=== PATIENT | female | born 2000 | race Caucasian/White ===

== ENCOUNTER 2023-09-23 12:09 | Emergency (ER) | payer MEDICAID, SELFPAY ==
[2023-09-23 12:11] VITALS: BP 110/82; PULSE 61; RESP 18; TEMP 36.1; O2SAT 97; BMI 25.2
[2023-09-23 12:14] VITALS: BP 110/82; PULSE 62; RESP 16; TEMP 36.3; O2SAT 98
--- NOTE | 2023-09-23 12:26 | CT_ITS ---
EXAM: CT ABDOMEN AND PELVIS WITH INTRAVENOUS CONTRAST CLINICAL INDICATION: abdominal pain TECHNIQUE: Helically acquired images were obtained of the abdomen and pelvis with intravenous contrast. This CT exam was performed using one or more of the following dose reduction techniques: automated exposure control, adjustment of the mA and/or kV according to patient size, and/or use of iterative reconstruction technique. CONTRAST: IV 100mL [id number] COMPARISON: No relevant prior studies available. FINDINGS: LOWER THORAX: No significant abnormality. Lung bases are clear. No cardiomegaly. No significant pericardial effusion. ABDOMEN: LIVER: No significant abnormality. Homogeneous. No focal mass. GALLBLADDER AND BILE DUCTS: No significant abnormality. No calcified gallstones. No gallbladder distention or wall edema. No intra- or extrahepatic biliary ductal dilation. PANCREAS: No significant abnormality. No focal cystic or solid mass. SPLEEN: No significant abnormality. Normal size without focal cystic or solid mass. ADRENALS: No significant abnormality. No nodules. KIDNEYS AND URETERS: No significant abnormality. Normal renal size and position. No hydronephrosis. STOMACH AND BOWEL: No significant abnormality. No stomach or bowel distention. No focal inflammatory change. PELVIS: APPENDIX: Normal appendix in the right lower quadrant. BLADDER: No significant abnormality. REPRODUCTIVE: Normal as visualized. No mass. ABDOMEN and PELVIS: INTRAPERITONEAL SPACE: No significant abnormality. No ascites or other fluid collection. No free air. BONES/JOINTS: No significant abnormality. No suspicious lytic or blastic abnormality. SOFT TISSUES: No significant abnormality. No discrete abdominal or pelvic wall hernia. VASCULATURE: No significant abnormality. Abdominal aorta is non-dilated. LYMPH NODES: No significant abnormality. No enlarged lymph nodes. CT/Abdomen/Pelvis W IV Cont ONLY IMPRESSION: No acute findings in the abdomen or pelvis. Electronically Signed: Marcelino Jefferson DO at 14:02 EDT ,
--- NOTE | 2023-09-23 12:30 | EX.ED.DYSGE1 ---
HPI <SHARON Pizano - Last Filed: 09/23/23 14:11> History of Present Illness Chief Complaint: Abd Pain Narrative Narrative: Patient is a 23-year-old female with history of anxiety, depression, migraine headaches who presents to the emergency department for ongoing abdominal pain. Patient states has been having abdominal pain, since September 15, 2023. She did get seen at [facility], they did a pelvic exam, she was placed on Flagyl for a uterine infection. Patient states that she continued to have pain, she went to the urgent care who referred her to the emergency department. Patient denies any fevers however does have subjective chills. Patient denies any dysuria, patient states the burning sensation. Patient did lift something heavy at work and had worsening burning sensation, she is here for evaluation. 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 Migraines Home Medications ?Medication ?Instructions ?Recorded ?Last Taken ?Type dicyclomine 20 mg tablet 20 mg PO TID PRN abdominal pain 09/23/23 Unknown Rx #20 tabs promethazine 25 mg tablet 25 mg PO TID PRN nausea and 09/23/23 Unknown Rx vomiting #14 tabs Allergy/AdvReac Type Severity Reaction Status Date / Time Sulfa (Sulfonamide Allergy Intermediate Hives Verified 09/23/23 12:11 Antibiotics) Social History Smoking Status: Current every day smoker tobacco type: e-cigarettes ROS <SHARON Pizano - Last Filed: 09/23/23 14:11> ROS ED ROS Narrative Constitutional: Negative for fever, chills, weight loss, weakness Eyes: Negative for vision loss, vision change, double vision ENT: Negative for any sore throat, ear pain, congestion Cardiovascular: Negative for any chest pain, tightness, palpitations Respiratory: Negative for any cough, sputum production, hemoptysis, dyspnea, dyspnea on exertion, orthopnea Gastrointestinal: Negative for any vomiting, diarrhea, constipation, blood in stool, blood in vomit. Positive for abdominal pain : Negative for any urinary frequency, dysuria, retention, blood in urine Muscle skeletal: Negative for any neck pain, back pain Neurological: Negative for any headache, syncope, dizziness Skin: Negative for any rashes, itching, abrasions, lacerations Psychiatric: Negative for any depression, anxiety, stress, suicidal ideation, homicidal ideation Hematologic: Negative for any excessive bruising, easy bleeding EXAM <SHARON Pizano - Last Filed: 09/23/23 14:11> Physical Exam Narrative Exam Narrative: Vital signs reviewed. HEET: Head normocephalic atraumatic, TMs clear bilaterally. Posterior pharynx is clear, moist mucous membranes. Nares clear bilaterally. Neck: Supple with no lymphadenopathy or tenderness. No signs of meningismus. Cardiac: Regular rate and rhythm no murmurs gallops or rubs, equal peripheral pulses bilaterally. Respiratory: Lungs clear to auscultation bilaterally. No chest tenderness. Abdomen: Soft, nontender, nondistended. No abdominal bruit or pulsatile masses. No hepatosplenomegaly Extremities: No peripheral edema, no signs of gross trauma or deformity. Active full range of motion of all extremities. Neuro: Cranial nerves II through XII intact, no focal neurological deficits. Skin: Clean dry and intact with no rash, purpura, petechiae, vesicles or pustules. Backs/flank: No CVA tenderness, no midline spinal tenderness, no deformity. Psych: Normal mood and affect. No SI, HI or acute psychosis. Const Vital Signs: 09/23/23 12:11 09/23/23 12:14 Temperature 96.9 F L 97.4 F L Temperature Source Temporal Temporal Pulse Rate 61 62 Respiratory Rate 18 16 Blood Pressure 110/82 H 110/82 H Blood Pressure Mean 91 91 Pulse Ox 97 98 Oxygen Delivery Method Room Air Room Air Positive well nourished and well developed General Appearance ED: well developed <Dr. Jasen Sanchez, DO - Last Filed: 09/23/23 14:12> Physical Exam Const Vital Signs: 09/23/23 12:11 09/23/23 12:14 Temperature 96.9 F L 97.4 F L Temperature Source Temporal Temporal Pulse Rate 61 62 Respiratory Rate 18 16 Blood Pressure 110/82 H 110/82 H Blood Pressure Mean 91 91 Pulse Ox 97 98 Oxygen Delivery Method Room Air Room Air MDM <SHARON Pizano - Last Filed: 09/23/23 14:11> MDM Lab Data Labs: Laboratory Results - last 24 hr 09/23/23 09/23/23 12:46 12:53 WBC 6.4 RBC 4.54 Hgb 13.0 Hct 39.8 MCV 87.7 MCH 28.6 MCHC 32.7 RDW Std Deviation 37.9 RDW Coeff of [place] 11.8 Plt Count 241 MPV 10.0 Immature Gran % (Auto) 0.300 Neut % (Auto) 56.0 Lymph % (Auto) 35.1 [place] % (Auto) 6.3 Eos % (Auto) 1.7 Baso % (Auto) 0.6 Absolute Neuts (auto) 3.6 Absolute Lymphs (auto) 2.23 Nucleated RBC % 0 Sodium 139 Potassium 3.8 Chloride 108 H Carbon Dioxide 26.0 Anion Gap 5 BUN 8 Creatinine 0.72 Estim Creat Clear Calc 107.51 Est GFR (MDRD) Af Amer 131 Est GFR (MDRD) Non-Af 109 BUN/Creatinine Ratio 11.2 Glucose 83 Calcium 9.2 Total Bilirubin 0.50 AST 11 L ALT 19 Alkaline Phosphatase 57 Total Protein 7.7 Albumin 3.9 Globulin 3.8 Albumin/Globulin Ratio 1.0 Lipase 19 Serum , Qual NEGATIVE Urine Color Yellow Urine Clarity Clear Urine pH 7.0 Ur Specific [place] 1.010 Urine Protein Negative Urine Glucose (UA) Normal Urine Ketones Negative Urine Occult Blood Negative Urine Nitrite Negative Urine Bilirubin Negative Urine Urobilinogen Normal Ur Leukocyte Esterase Negative Urine RBC 0 SEEN Urine WBC 0 SEEN Ur Squamous Epith Cells 0-5 SEEN Urine Bacteria 0 SEEN Urine Mucus 0 SEEN Radiography Diagnostic Testing: Clinical Impression(s) from Imaging Studies Abdomen/Pelvis CT 09/23/23 12:26 IMPRESSION: No acute findings in the abdomen or pelvis. Electronically Signed: Marcelino Jefferson DO at 14:02 EDT , Treatment and Re-Evaluation :: Differential diagnosis includes however is not limited to: Hernia, ovarian cyst, viral illness, colitis, diverticulitis Patient appears to be in no obvious distress vital signs are stable, patient presents to the emergency department with complaints of abdominal pain is been ongoing for the last 8 days. Patient will receive a full abdominal workup including CBC CMP lipase, serum . Urinalysis as well as a CT scan of the abdomen pelvis IV contrast. IV fluids will be given. Patient CT scan of the abdomen pelvis shows no acute findings in the abdomen or pelvis. Patient's laboratory values show a normal CBC, chemistries were unremarkable, patient is not , lipase is negative. Urinalysis was negative for any infection, no white blood cells, no leukocyte esterase. GC/committee will be sent for culture. Patient will continue taking her Flagyl. At this time, there is no evidence of acute surgical emergency, I do believe patient can be discharged home. The patient be given Phenergan for home as well as Bentyl. She will given a primary care doctor for her other chronic issues. All questions answered, stable for discharge. <Dr. Jasen Sanchez, DO - Last Filed: 09/23/23 14:12> [facility] Narrative Medical decision making narrative: I have personally performed a face to face assessment of the patient and have reviewed the RICA Note. I performed a substantive portion of the visit including all aspects of the following. My garcia findings include: History: Patient presents with diffuse abdominal pain that has been getting worse over the past week. Patient states it is gradually gotten worse. Patient states that at work last night she lifted a heavy box and her pain became worse. Patient states her pain is diffuse across her entire abdomen. Patient states nothing makes it better. Patient describes her pain as burning. Patient admits to some nausea, vomiting, and diarrhea. Patient denies any urinary complaints. Patient was seen in the emergency department at [facility] for this recently and was diagnosed with inflamed uterus and was given prescription for metronidazole. Exam: Vital signs are stable. Patient is afebrile. Patient is in no acute distress. Oral mucosa is pink and moist. Neck is supple. Trachea is midline. There is no JVD. Heart was regular rate and rhythm. Lungs are clear and equal bilaterally. Abdomen is soft. Bowel sounds are normal. There is diffuse tenderness. There is no rebound or guarding noted. Cranial nerves II through XII are intact. There are no focal motor or sensory deficits noted. Medical Decision Making: Differential diagnosis includes gastroenteritis, urinary tract infection, pyelonephritis, pancreatitis, ectopic , sexually transmitted disease, uterine fibroid, uterine mass, and viral illness. CBC will be obtained to assess for leukocytosis and anemia. Comprehensive metabolic profile will be obtained to assess for hepatic function, renal function, and electrolyte abnormality. Lipase will be obtained to assess for pancreatitis. GC and Chlamydia cultures will be obtained to assess for sexually transmitted disease. Serum hCG will be obtained to assess for . Urinalysis will be obtained to assess for urinary tract infection and hematuria. CT scan of the abdomen and pelvis will be obtained to assess for gastroenteritis and uterine mass. Patient was given IV fluids and Toradol. CBC was reviewed and was within normal limits. Comprehensive metabolic profile was reviewed and was within normal limits. Lipase was reviewed and was normal at 19. Serum hCG was reviewed and was negative. Urinalysis was reviewed. There is no evidence of urinary tract infection or hematuria. CT scan of the abdomen pelvis was obtained. There is no acute process noted. There is no evidence of free air or free fluid. There are no masses noted. This was interpreted by the radiologist was also independently reviewed by myself. Patient was advised of her findings. Patient was instructed to follow-up with her primary care physician in 5 to 7 days. Patient was instructed return if worse in any way. Patient understood and was agreeable with the plan. All questions were answered. Lab Data Labs: Laboratory Results - last 24 hr 09/23/23 09/23/23 12:46 12:53 WBC 6.4 RBC 4.54 Hgb 13.0 Hct 39.8 MCV 87.7 MCH 28.6 MCHC 32.7 RDW Std Deviation 37.9 RDW Coeff of [place] 11.8 Plt Count 241 MPV 10.0 Immature Gran % (Auto) 0.300 Neut % (Auto) 56.0 Lymph % (Auto) 35.1 [place] % (Auto) 6.3 Eos % (Auto) 1.7 Baso % (Auto) 0.6 Absolute Neuts (auto) 3.6 Absolute Lymphs (auto) 2.23 Nucleated RBC % 0 Sodium 139 Potassium 3.8 Chloride 108 H Carbon Dioxide 26.0 Anion Gap 5 BUN 8 Creatinine 0.72 Estim Creat Clear Calc 107.51 Est GFR (MDRD) Af Amer 131 Est GFR (MDRD) Non-Af 109 BUN/Creatinine Ratio 11.2 Glucose 83 Calcium 9.2 Total Bilirubin 0.50 AST 11 L ALT 19 Alkaline Phosphatase 57 Total Protein 7.7 Albumin 3.9 Globulin 3.8 Albumin/Globulin Ratio 1.0 Lipase 19 Serum , Qual NEGATIVE Urine Color Yellow Urine Clarity Clear Urine pH 7.0 Ur Specific [place] 1.010 Urine Protein Negative Urine Glucose (UA) Normal Urine Ketones Negative Urine Occult Blood Negative Urine Nitrite Negative Urine Bilirubin Negative Urine Urobilinogen Normal Ur Leukocyte Esterase Negative Urine RBC 0 SEEN Urine WBC 0 SEEN Ur Squamous Epith Cells 0-5 SEEN Urine Bacteria 0 SEEN Urine Mucus 0 SEEN Radiography Diagnostic Testing: Clinical Impression(s) from Imaging Studies Abdomen/Pelvis CT 09/23/23 12:26 IMPRESSION: No acute findings in the abdomen or pelvis. Electronically Signed: Marcelino Jefferson DO at 14:02 EDT , Discharge Plan Triage Chief Complaint: Abd Pain Other Complaint: Headache ED Midlevel Provider: Dawood Ahn ED Provider: Jasen Sanchez Dx/Rx/DC Orders Clinical Impression: Abdominal pain Instructions: Abdominal Pain Primary Care Provider: Care Physician,No Primary Referrals: Care Physician,No Primary [Primary Care Provider] - Print Language: Polish
[2023-09-23] MEDS: 0.9% Normal Saline (1000mL) 1,000 ML 999 ML IV (12:52)
[2023-09-23 12:57] LABS: Bacteria 0 SEEN /hpf (None Seen); Mucous, Urine 0 SEEN /hpf (<or=2+); Red Blood Cells-Urine 0 SEEN /hpf (0-5); White Blood Cells 0 SEEN /hpf (0-5)
[2023-09-23 12:59] LABS: Absolute Lymphocyte Count 2.23 X10^3/uL (0.83-4.51); Absolute Neutrophil Count 3.6 X10^3/uL (2.0-7.7); Basophil# 0.04 X10^3/uL; Basophil% 0.6 % (0-1); Eosinophil# 0.11 X10^3/uL; Eosinophils% 1.7 % (0-5); Hematocrit 39.8 % (37-47); Lymphocyte # 2.23 X10^3/ul (0.83-4.51); Lymphocyte % 35.1 % (19-41); Mean Corp Hgb Conc 32.7 g/dL (32-36); Mean Corpuscular Hgb 28.6 pg (27.0-32.0); Mean Corpuscular Volume 87.7 fL (81-99); Monocyte% 6.3 % (0-10); NRBC Flagged by Analyzer 0 % (0-5); Neutrophil # 3.56 X10^3/uL (2.7-7.7); Platelet Count 241 K/mm3 (150-450); RBC Distribution Width CV 11.8 % (11.6-14.6); RBC Distribution Width SD 37.9 fl (35.1-43.9); Red Blood Count 4.54 M/mm3 (4.2-5.4); White Blood Count 6.4 K/mm3 (4.4-11.0)
[2023-09-23 13:04] LABS: Internal QC Validated? YES +Cl - CLEAR BKGD
[2023-09-23 13:05] LABS: Pregnancy, Serum, hCG Quali. NEGATIVE Negative
[2023-09-23 13:15] LABS: AST(SGOT) 11 U/L (15-37); Alanine Aminotransfer ALT/SGPT 19 U/L (13-56); Albumin, Serum 3.9 g/dL (3.2-5.0); Alkaline Phosphatase 57 U/L (45-117); Anion Gap 5 (5-15); BUN 8 mg/dL (7-18); BUN/Creat Ratio 11.2 RATIO (10-20); Calcium,Total 9.2 mg/dL (8.5-10.1); Chloride 108 mmol/L (98-107); Creatinine, Serum 0.72 mg/dL (0.55-1.02); EST Glomerular Filtration Rate 109 mL/min (>60); Est Glom Filt Rate - Afr Amer 131 mL/min (>60); Estimated Creatinine Clearance 107.51 ml/min; Globulin 3.8 g/dL (2.2-4.2); Glucose 83 mg/dL (74-106); Lipase 19 U/L (13-75); Potassium 3.8 mmol/L (3.5-5.1); Protein, Total 7.7 g/dL (6.4-8.2); Sodium Level 139 mmol/L (136-145)
[2023-09-23] MEDS: Ketorolac 15 MG/ML Vial IV (13:16)
[2023-09-23 13:18] LABS: Color, Urine Yellow (Yellow); Glucose, Dipstick Normal (Normal); Ketone-Dipstick Negative (Negative); Leukocyte Esterase-Dipstick Negative /ul (Negative); Nitrite-Dipstick Negative (Negative); Occult Blood-Urine Negative /ul (Negative); Protein-Dipstick Negative (Negative); Urine Bilirubin Dipstick Negative (Negative); Urine Clarity Clear (Clear); Urine Urobilinogen Normal (Normal)
[2023-09-23 13:21] LABS: Squamous Epithelial Cells - UA 0-5 SEEN /hpf (5-10)
[2023-09-23 14:24] VITALS: BP 120/72; PULSE 58; RESP 16; TEMP 36.3; O2SAT 99
[2023-09-23] MEDS: Dicyclomine 20 MG/2 ML Vial IM (14:32)
== END 2023-09-23 14:52 | disposition home or self-care (01) ==
PROVIDERS: Nurse Practitioner; Emergency Provider Emergency Medicine; Visit Provider Emergency Medicine
DX: R10.9 Unspecified abdominal pain (principal); F17.290 Nicotine dependence, other tobacco product, uncomplicated
CPT/HCPCS: 74177; 80053; 81001; 83690; 84703; 85025; 87491; 87591; 96361; 96372; 96374; 99283; J7030; Q9967; A4216